=== PATIENT | male | born 1965 | race Caucasian/White ===

== ENCOUNTER 2017-12-05 14:13 | Emergency (ER) | END 2017-12-05 18:49 | disposition home or self-care (01) ==

== ENCOUNTER 2017-12-06 17:31 | Inpatient (IN) | END 2017-12-08 23:20 | DRG 65 ==

== ENCOUNTER 2017-12-08 23:50 | Inpatient (IN) | END 2017-12-22 15:00 | disposition home health service (06) | DRG 57 ==

== ENCOUNTER 2018-01-07 10:56 | Emergency (ER) | END 2018-01-07 14:58 | disposition home or self-care (01) ==

== ENCOUNTER 2019-01-12 16:51 | Inpatient (IN) | payer OTHER ==
[~2019-01-12] VITALS: Ht 167.6 cm; Wt 81.5 kg
[~2019-01-12 16:51] MED LIST: ALPR0.5T PO; ASPI-903 PO; ATOR20TA38 PO; EPIN0.3P4 INJ; FAMO20TA18 PO; LEVE-5 PO; PRED20TA PO
--- NOTE | 2019-01-12 17:01 | ERD ---
ER Documentation Chief Complaint Chief Complaint Left-sided numbness HPI The patient is a 53-year-old male, presenting to the ER because of left-sided numbness that began about 2-hour prior to arrival, 3 PM. He denies fever, chills, syncope, near syncope, dysarthria, dysphonia, weakness, neck pain, chest pain, dyspnea, abdominal pain, vomiting. He had a stroke about a year ago with left hemiplegia Medical history: CVA with left hemiplegia, hypertension, anxiety, epilepsy, dyslipidemia Past surgical history: None ROS All systems reviewed and are negative except as per history of present illness. Medications Home Meds Reported Medications Metoprolol Succinate* (Toprol XL*) 25 Mg Tab.sr.24h, 25 MG PO DAILY, #30 TAB 01/12/19 Loratadine* (Loratadine*) 10 Mg Tablet, 10 MG PO DAILY, #30 TAB 01/12/19 Omeprazole* (Omeprazole*) 20 Mg Capsule.dr, 20 MG PO DAILY, #30 CAP 01/12/19 Gabapentin* (Gabapentin*) 100 Mg Capsule, 100 MG PO BID, #90 CAP 01/12/19 Atorvastatin Calcium* (Atorvastatin Calcium*) 20 Mg Tablet, 20 MG PO QHS, #30 TAB 01/12/19 Aspirin (Low Dose Aspirin) 81 Mg Tablet.dr, 81 MG PO DAILY, #30 TAB 01/12/19 Discontinued Reported Medications Atorvastatin Calcium* (Atorvastatin Calcium*) 20 Mg Tablet, 20 MG PO QHS, #30 TAB 01/07/18 Aspirin* (Aspirin* Chew) 81 Mg Tab.chew, 81 MG PO DAILY, TAB.CHEW 01/07/18 Famotidine* (Famotidine*) 20 Mg Tablet, 20 MG PO DAILY, #30 TAB 01/07/18 Discontinued Scripts Alprazolam* (Xanax*) 0.5 Mg Tab, 0.5 MG PO Q8H PRN for ANXIETY, #14 TAB Prov:JAMI HOOVER. DO 01/07/18 Epinephrine (Epipen 2-Rishabh) 0.3 Mg/0.3 Ml Pen.injctr, 1 EA INJ ONCE PRN for ALLERGIC REACTION, #1 EA Prov:LISSA HOOVERSTCASES A. DO 01/07/18 Prednisone* (Prednisone*) 20 Mg Tab, 60 MG PO DAILY for 5 Days, TAB Prov:LEKKOS,APOSTOLOS A. DO 01/07/18 Levetiracetam* (Keppra*) 500 Mg Tablet, 500 MG PO BID, #60 TAB Prov:TRISTIN HOOVERS Vincent. DO 01/07/18 Allergies Allergies: Coded Allergies: Penicillins (Verified Allergy, Unknown, RASH, 01/12/19) PMhx/Soc History of Surgery: No Anesthesia Reaction: No Hx Neurological Disorder: Yes (CVA) Hx Respiratory Disorders: No Hx Cardiac Disorders: No Hx Psychiatric Problems: No Hx Miscellaneous Medical Probl: No Hx Alcohol Use: No Hx Substance Use: No Hx Tobacco Use: No Physical Exam Vitals Vital Signs Date Temp Pulse Resp B/P (MAP) Pulse Ox O2 O2 Flow FiO2 Time Delivery Rate 01/12/19 98.7 77 18 111/78 97 Room Air 23:32 (89) 01/12/19 65 18 120/88 99 Room Air 22:20 (99) 01/12/19 65 18 129/89 100 Room Air 21:00 (102) 01/12/19 74 18 118/80 98 Room Air 19:49 (93) 01/12/19 78 18 130/79 98 Room Air 18:38 (96) 01/12/19 98.2 114 19 170/99 97 16:59 (122) Physical Exam Const: No acute distress. Head: Atraumatic. Eyes: Normal Conjunctiva. ENT: Normal External Ears, Nose and Mouth. Neck: Full range of motion. No meningismus. Resp: Clear to auscultation bilaterally. Cardio: Regular rate and rhythm. Abd: Soft, non distended, normal bowel sounds, non tender. Skin: No petechiae or rashes. Back: No midline or flank tenderness. Ext: No cyanosis, or edema. Neur: Awake and alert. Left upper and left lower extremity 3+ Psych: Normal Mood and Affect. Result Diagram: 01/12/19 1721 01/12/19 1721 Results 24 hrs Laboratory Tests Test 01/12/19 17:21 White Blood Count 8.6 10^3/ul Red Blood Count 5.19 10^6/ul Hemoglobin 15.2 g/dl Hematocrit 45.7 % Mean Corpuscular Volume 88.1 fl Mean Corpuscular Hemoglobin 29.3 pg Mean Corpuscular Hemoglobin Concent 33.3 g/dl Red Cell Distribution Width 12.0 % Platelet Count 284 10^3/UL Mean Platelet Volume 8.9 fl Immature Granulocytes % 0.200 % Neutrophils % 45.1 % Lymphocytes % 40.9 % Monocytes % 7.1 % Eosinophils % 6.0 % Basophils % 0.7 % Nucleated Red Blood Cells % 0.0 /100WBC Immature Granulocytes # 0.020 10^3/ul Neutrophils # 3.9 10^3/ul Lymphocytes # 3.5 10^3/ul Monocytes # 0.6 10^3/ul Eosinophils # 0.5 10^3/ul Basophils # 0.1 10^3/ul Nucleated Red Blood Cells # 0.0 10^3/ul Prothrombin Time 12.9 Sec Prothrombin Time Ratio 1.0 INR International Normalized Ratio 0.96 Activated Partial Thromboplast Time 25.4 Sec Sodium Level 141 mmol/L Potassium Level 3.9 mmol/L Chloride Level 103 mmol/L Carbon Dioxide Level 25 mmol/L Anion Gap 13 Blood Urea Nitrogen 10 mg/dl Creatinine 1.00 mg/dl Est Glomerular Filtrat Rate mL/min > 60 mL/min Glucose Level 111 mg/dl Calcium Level 9.1 mg/dl Current Medications Medications Dose Sig/Mindi Start Time Status Last (Trade) Ordered Route PRN Stop Time Admin Dose Reason Admin Aspirin 325 mg ONCE ONCE 01/12/19 DC 01/12/19 (Aspirin) PO 19:30 19:41 01/12/19 19:31 Procedures/[place] [address] Radiology Main Line: [phone] DIAGNOSTIC IMAGING REPORT Patient: ANTONI AGUILAR : 1965 Age: 53 Sex: M MR #: [id number] DOS: 01/12/19 1705 Ordering MD: MASON AGOSTO MD Location: E/R Room/Bed: PROCEDURE: CT Brain without contrast. CLINICAL INDICATION: Headache. Left-sided numbness. TECHNIQUE: A CT of the brain was performed on a multidetector CT scanner utilizing axial imaging from the skull base through the vertex without IV contrast. Multiplanar reformatted images were made. Images were reviewed on a PACS workstation. The CTDIvol is 40 mGy and the DLP is 634 mGycm. DICOM images are available. One or more of the following dose reduction techniques were utilized: 1.) Automated exposure control 2.) Adjustment of the mA +/- kV according to patient's size 3.) Use of iterative reconstruction technique. COMPARISON: Head CT January 07, 2018. FINDINGS: There is no intracranial hemorrhage, mass effect, or midline shift. No extra- axial fluid collection is seen. There is mild to moderate diffuse cerebral volum e loss with sulcal and ventricular dilatation. Ventricles are of normal configuration. There are aging acute to subacute infarcts involving the right medial temporal lobe, the posterior limb of the right internal capsule and the right centrum [place] white matter right. Periventricular chronic white matter disease is again seen in both cerebral hemispheres. There is no associated mass effect. No intracranial hemorrhage is identified.. The visualized paranasal sinuses and osseous structures are grossly unremarkable. IMPRESSION: Aging acute to subacute non-hemorrhagic infarcts medial right temporal lobe, posterior limb right internal capsule and right centrum [place]. P eriventricular white matter disease both cerebral hemispheres compatible with chronic small vessel ischemia. No intracranial hemorrhage or mass. Underlying mild to moderate diffuse cerebral atrophy. .Shaheen Noonan MD, MD Date Time Electronically viewed and signed by .Shaheen Noonan MD, MD on 01/12/2019 17:25 .A/ CC: MASON AGOSTO MD [phone] Consultation: I discussed the patient with the stroke neurologist who did not recommend TPA MEDICAL MAKING DECISION: The patient is a 53-year-old male, presenting with acute versus subacute stroke. He was treated with aspirin 325 mg p.o. the differential diagnoses considered include but are not limited to The differential diagnoses considered include but are not limited to acute stroke, subacute stroke, subarachnoid hemorrhage, occult trauma, CVA, meningitis, encephalitis, hypertension, tension, migraine, cluster, narcotic withdrawal, cervical spine disease. Departure Diagnosis: Primary Impression: Left sided numbness Condition: Stable Comments I discussed the findings with the patient. I discussed the patient with Dr Orantes at 7:20p , who was made aware of the lab, the treatment, the patient conditio n. The patient is admitted to Tel Disclaimer: Inadvertent spelling and grammatical errors are likely due to EHR/dictation software use and do not reflect on the overall quality of patient care. Also, please note that the electronic time recorded on this note does not necessarily reflect the actual time of the patient encounter. MASON AGOSTO MD Jan 12, 2019 17:01
[2019-01-12] MEDS ORDERED: ASPI81TA52 PO (17:23)
[2019-01-12] MEDS ORDERED: GABA100C14 PO (17:24)
[2019-01-12] MEDS ORDERED: OMEP20CA16 PO (17:24)
[2019-01-12] MEDS ORDERED: ATOR20TA38 PO (17:24)
[2019-01-12] MEDS ORDERED: LORA10TA3 PO (17:25)
[2019-01-12] MEDS ORDERED: METO-335 PO (17:25)
--- NOTE | 2019-01-12 17:59 | STROKE ---
Date/Time of Note Date/Time of Note DATE: 01/12/19 TIME: 20:54 Patient Information General Arrival Date Age 53 Gender male Weight 77.27 kg Vital Signs Vital Signs Vital Signs Date Temp Pulse Resp B/P (MAP) Pulse Ox O2 O2 Flow FiO2 Time Delivery Rate 01/12/19 98.2 114 19 170/99 97 16:59 (122) Patient History Current Medications Allergies: Coded Allergies: Penicillins (Verified Allergy, Unknown, RASH, 01/12/19) NIH Stroke Scale NIH Stroke Scale Date/Time Recorded DATE: 01/12/19 TIME: 20:54 Submitted By Agustin العراقي t-PA Imaging Review Date/Time Imaging Reviewed DATE: 01/12/19 TIME: 20:54 t-PA Administration Weight 77.27 kg Recommedation submitted by Agustin العراقي Recommendations Recommendation i discussed the case over the phone with dr. chun as the on-call ischemic stroke and residual left hemiparesis presenting to the emergency room with his only new symptom being left sided numbness. i did not interview or exam of the patient at the time of service. the entirety of the history and physical were taken from the emergency room doctor. the patient complained of only new numbness and no new weakness. his noncontrast head ct shows multiple small vessel ischemic strokes of different ages in the right hemisphere, including the temporal lobe. the patient's symptoms started at 3;00 pm and i was called around 5;00 pm. the patient was clearly within the iv tpa treatment window, but i explained that the new deficit is not one that would warrant exposure to iv tpa. additionally, given that the ct is showing subacute infarction, i wonder about the true time of onset. the patient should be admitted for stroke workup beginning with an mri to see if there is any acute infarction.Because the patient has presumed TIA with resolved symptoms and ABCD2 > 3, or the patient has persisting symptoms and NIHSS < 4, I have recommended DAPT per the results of the POINT trial. Administer Plavix 600 mg PO now and 75 mg PO daily starting tomorrow for 90 days. Administer aspirin 325 mg PO now, 162 mg PO daily for 5 days starting tomorrow, and then 81 mg PO daily indefinitely. BP < 200/110. Consultation with local inpatient neurologist. MRI Brain wo. CTA head and neck. TTE. Telemetry. Consider LINQ. PT/OT/SLT. Bedside swallow. Stroke Education. Smoking cessation counseling, if a smoker. Recommendations were discussed with ED . AGUSTIN العراقي MD Jan 12, 2019 17:59
[2019-01-12] MEDS ORDERED: ASPIRIN 325 MG TAB PO ONE (19:30)
[2019-01-13] VITALS (11 sets, daily range): BP systolic 111–129; BP diastolic 63–78; PULSE 58–88; RESP 16–20; Ht 167.6 cm; Wt 81.5 kg
[2019-01-13] MEDS ORDERED: CLOPIDOGREL 75 MG TAB PO ONE (01:00)
--- NOTE | 2019-01-13 08:06 | HP ---
Date/Time of Note Date/Time of Note DATE: 01/13/19 TIME: 08:02 Assessment/Plan VTE Prophylaxis Pharmacological prophylaxis: NA/contraindicated Pharm contraindication: other Lines/Catheters IV Catheter Type (from Nrs): Peripheral IV Assessment/Plan Hospital Course 53 years old male with history of CVA in 2018 residual left-sided weakness more pronounced in upper extremity, reported history of seizure not on antiepileptics who presented with acute onset left lower extremity numbness & stiffness which happened yesterday 3 PM. He was seen in the emergency room at 5 PM by tele stroke neurologist. He was not deemed a candidate of TPA. CT of the head without contrast was done which showed Aging acute to subacute non-hemorrhagic infarcts medial right temporal lobe, posterior limb right internal capsule and right centrum [place]. 2D echo with agitated saline was done which was unremarkable Plan Admit to telemetry observation Carotid ultrasound -MRI of the brain without contrast Follow-up with neurology recommendations Continue Keppra, patient was told by primary care not to take it continue aspirin, Plavix, statin PT OT Prophylaxis: SCDs Problems: (1) Left sided numbness Status: Acute (2) Intravenous tissue plasminogen activator (tPA) not indicated (3) History of seizure (4) History of CVA with residual deficit Result Diagram: 01/12/19 1721 01/12/19 1721 Results 24hrs Laboratory Tests Test 01/12/19 17:21 01/13/19 06:13 White Blood Count 8.6 # Red Blood Count 5.19 Hemoglobin 15.2 Hematocrit 45.7 Mean Corpuscular Volume 88.1 Mean Corpuscular Hemoglobin 29.3 Mean Corpuscular Hemoglobin Concent 33.3 Red Cell Distribution Width 12.0 Platelet Count 284 # Mean Platelet Volume 8.9 Immature Granulocytes % 0.200 Neutrophils % 45.1 Lymphocytes % 40.9 Monocytes % 7.1 Eosinophils % 6.0 Basophils % 0.7 Nucleated Red Blood Cells % 0.0 Immature Granulocytes # 0.020 Neutrophils # 3.9 Lymphocytes # 3.5 H Monocytes # 0.6 Eosinophils # 0.5 Basophils # 0.1 Nucleated Red Blood Cells # 0.0 Prothrombin Time 12.9 Prothrombin Time Ratio 1.0 INR International Normalized Ratio 0.96 Activated Partial Thromboplast Time 25.4 Sodium Level 141 Potassium Level 3.9 Chloride Level 103 Carbon Dioxide Level 25 Anion Gap 13 Blood Urea Nitrogen 10 Creatinine 1.00 Est Glomerular Filtrat Rate mL/min > 60 Glucose Level 111 Calcium Level 9.1 Triglycerides Level 146 Cholesterol Level 130 LDL Cholesterol, Calculated 74 HDL Cholesterol 27 L Cholesterol/HDL Ratio 4.8 HPI/ROS Admit Date/Time Admit Date/Time Jan 12, 2019 at 19:22 Hx of Present Illness 53 years old male with history of CVA in 2018 residual left-sided weakness more pronounced in upper extremity, reported history of seizure not on antiepileptics who presented with acute onset left lower extremity numbness in his stiffness yesterday 3 PM. He was seen in the emergency room at 5 PM by telemetry stroke neurologist. He was not deemed a candidate of TPA. CT of the head without contrast was done which showed Aging acute to subacute non-hemorrhagic infarcts medial right temporal lobe, posterior limb right internal capsule and right centrum [place]. Patient denies any new left upper or lower extremity weakness. He denies change in vision, problems with balance, seizure activity, fever, chills, chest pain, shortness of breath, palpitation, change in urination or bowel habits. PMH/Family/Social Past Medical History Medications Current Medications Ondansetron HCl (Zofran Inj) 4 mg Q4 PRN IV VOMITTING; Start 01/13/19 at 01:30 Atorvastatin Calcium (Lipitor) 20 mg QHS PO ; Start 01/13/19 at 21:00 Gabapentin (Neurontin) 100 mg BID PO ; Start 01/13/19 at 09:00 Loratadine (Claritin) 10 mg DAILY PO ; Start 01/13/19 at 09:00 Metoprolol Succinate (Toprol Xl) 25 mg DAILY PO ; Start 01/13/19 at 09:00 Aspirin (Halfprin) 162 mg DAILY PO ; Start 01/13/19 at 09:00; Status UNV Clopidogrel Bisulfate (plaVIX) 75 mg DAILY PO ; Start 01/13/19 at 09:00; Status UNV Coded Allergies: Penicillins (Verified Allergy, Unknown, RASH, 01/12/19) Past Surgical History Past Surgical Hx: no surgical history Family History Significant Family History: hypertension Social History Smoking Status: Never smoker Exam/Review of Systems Vital Signs Vitals Vital Signs Date Temp Pulse Resp B/P (MAP) Pulse Ox O2 O2 Flow FiO2 Time Delivery Rate 01/13/19 98.0 77 16 118/75 98 Room Air 07:20 (89) Exam Exam Gen.: In no acute distress, pleasant and cooperative Eyes: Anicteric, conjunctiva normal, PERRLA, EOM intact HEENT: Normocephalic, atraumatic, hearing grossly intact, oral mucosa moist, Neck: Supple, no masses, trachea midline Cardiovascular: Regular rate and rhythm, no peripheral edema, no murmurs, no gallops, no rubs Respiratory: Clear to auscultation bilaterally, no use of accessory muscles of respiration, no wheezes, expiration not prolonged Extremities: No cyanosis, no edema, no calf tenderness, pulses bilaterally palpable, extremities warm and perfused Abdomen: Soft, not distended, nontender, bowel sounds present, no guarding, no rebound Neurological: Alert and oriented x3, speech normal, residual left side facial symmetry noted, residual left upper extremity weakness noted, residual left side dysmetria noted. : No Mabry catheter Dermatologic no rash, no ulcers Heme: No acute bleeding, no ecchymosis or petechia AMBERLY STOVALL MD Jan 13, 2019 08:06
[2019-01-13] MEDS: GABAPENTIN 100 MG CAP PO SCH ×2 (08:14→20:24)
[2019-01-13] MEDS: CLOPIDOGREL 75 MG TAB PO SCH (08:15)
[2019-01-13] MEDS: METOPROLOL (XL) 25 MG TAB PO SCH (08:16)
[2019-01-13] MEDS: LORATADINE 10 MG TAB PO SCH (08:17)
[2019-01-13] MEDS: ASPIRIN (EC) 81 MG TAB PO SCH (08:17)
[2019-01-13] MEDS ORDERED: ASPIRIN (EC) 81 MG TAB PO SCH (09:00)
--- NOTE | 2019-01-13 10:59 | CONSI ---
Assessment/Plan Assessment/Plan Assessment/Plan (Recall) 53 M c/ reported Hx of prior stroke c/b epilepsy...who presents for evaluation of transient worsening left sided weakness w/ numbness...for which neurology is consulted. The clinical picture is most ominously concerning for recurrent stroke.. Recrudescence is additionally considered -- a Dx of exclusion. Head CT suggests evolving acute-subacute infarctions... LDL 74; A1C 6.0, BP OK P: MRI brain for further characterization OK to continue asa/lipitor daily for secondary stroke prevention, pending the above Add UDS, UA PT/OT/ST as necessary Resume Keppra for seizure ppx (patient self-d/c'd despite recurrent focal motor seizures...) Other management per primary Will follow clinically Consultation Date/Type/Reason Admit Date/Time Jan 12, 2019 at 19:22 Type of Consult Neurology Reason for Consultation transient L arm and leg numbness Requesting Provider: PENELOPE LAZARO MD Date/Time of Note DATE: 01/13/19 TIME: 10:53 Hx of Present Illness The patient is a 53-year-old male, presenting to the ER because of left-sided numbness that began about 2-hour prior to arrival, 3 PM. Lasted ~ 30 minutes. He denies fever, chills, syncope, near syncope, dysarthria, dysphonia, weakness, neck pain, chest pain, dyspnea, abdominal pain, vomiting. He had a stroke about a year ago with left hemiplegia Medical history: CVA with left hemiplegia, hypertension, anxiety, epilepsy, dyslipidemia Past surgical history: None 12 PT ROS ow neg Objective Exam Vitals Vital Signs Date Temp Pulse Resp B/P (MAP) Pulse Ox O2 O2 Flow FiO2 Time Delivery Rate 01/13/19 85 08:01 01/13/19 98.0 16 118/75 98 Room Air 07:20 (89) Exam PE: Gen Appearance: No Apparent Distress HEENT: Normocephalic Cardiovascular: Regular rate Lungs: Clear bilaterally Abdomen: Soft Extremities: Dry NE: The patient was alert and oriented. Language was normal. Fund of knowledge was normal. Pupils were equal and reactive to light. There was no afferent pupillary defect. Visual li were normal. Funduscopic examination was limited. Extra-ocular movements were full. Ptosis was absent. There was no nystagmus. Facial sensation was normal. Face was symmetric with normal strength. Hearing was intact. Palate movements were normal. Neck strength was normal. There was normal tongue bulk and speed of movement. Tone was increased on the left. Muscle bulk was normal. I did not see fa sciculations. Arms and leg were mildly weak on the left (arm > leg) Vibration sensation was normal. Temperature and pinprick sensation was normal. Rapid alternating movements were normal. There was no dysmetria. There was no intention tremor. Gait was deferred due to bedrest. Arm and leg reflexes were brisk on the left.. Lopez's sign was absent. Plantar responses were flexor. Results Result Diagram: 01/12/19 1721 01/12/19 1721 Results 24hrs Laboratory Tests Test 01/12/19 17:21 01/13/19 06:13 White Blood Count 8.6 # Red Blood Count 5.19 Hemoglobin 15.2 Hematocrit 45.7 Mean Corpuscular Volume 88.1 Mean Corpuscular Hemoglobin 29.3 Mean Corpuscular Hemoglobin Concent 33.3 Red Cell Distribution Width 12.0 Platelet Count 284 # Mean Platelet Volume 8.9 Immature Granulocytes % 0.200 Neutrophils % 45.1 Lymphocytes % 40.9 Monocytes % 7.1 Eosinophils % 6.0 Basophils % 0.7 Nucleated Red Blood Cells % 0.0 Immature Granulocytes # 0.020 Neutrophils # 3.9 Lymphocytes # 3.5 H Monocytes # 0.6 Eosinophils # 0.5 Basophils # 0.1 Nucleated Red Blood Cells # 0.0 Prothrombin Time 12.9 Prothrombin Time Ratio 1.0 INR International Normalized Ratio 0.96 Activated Partial Thromboplast Time 25.4 Sodium Level 141 Potassium Level 3.9 Chloride Level 103 Carbon Dioxide Level 25 Anion Gap 13 Blood Urea Nitrogen 10 Creatinine 1.00 Est Glomerular Filtrat Rate mL/min > 60 Glucose Level 111 Calcium Level 9.1 Hemoglobin A1c 6.0 H Triglycerides Level 146 Cholesterol Level 130 LDL Cholesterol, Calculated 74 HDL Cholesterol 27 L Cholesterol/HDL Ratio 4.8 Vitamin B12 Level > 1000 H Thyroid Stimulating Hormone (TSH) 1.510 Past Medical History reviewed Home Meds Reported Medications Metoprolol Succinate* (Toprol XL*) 25 Mg Tab.sr.24h, 25 MG PO DAILY, #30 TAB 01/12/19 Loratadine* (Loratadine*) 10 Mg Tablet, 10 MG PO DAILY, #30 TAB 01/12/19 Omeprazole* (Omeprazole*) 20 Mg Capsule.dr, 20 MG PO DAILY, #30 CAP 01/12/19 Gabapentin* (Gabapentin*) 100 Mg Capsule, 100 MG PO BID, #90 CAP 01/12/19 Atorvastatin Calcium* (Atorvastatin Calcium*) 20 Mg Tablet, 20 MG PO QHS, #30 TAB 01/12/19 Aspirin (Low Dose Aspirin) 81 Mg Tablet.dr, 81 MG PO DAILY, #30 TAB 01/12/19 Discontinued Reported Medications Atorvastatin Calcium* (Atorvastatin Calcium*) 20 Mg Tablet, 20 MG PO QHS, #30 TAB 01/07/18 Aspirin* (Aspirin* Chew) 81 Mg Tab.chew, 81 MG PO DAILY, TAB.CHEW 01/07/18 Famotidine* (Famotidine*) 20 Mg Tablet, 20 MG PO DAILY, #30 TAB 01/07/18 Discontinued Scripts Alprazolam* (Xanax*) 0.5 Mg Tab, 0.5 MG PO Q8H PRN for ANXIETY, #14 TAB Prov:JAMI HOOVER DO 01/07/18 Epinephrine (Epipen 2-Rishabh) 0.3 Mg/0.3 Ml Pen.injctr, 1 EA INJ ONCE PRN for ALLERGIC REACTION, #1 EA Prov:JAMI HOOVER DO 01/07/18 Prednisone* (Prednisone*) 20 Mg Tab, 60 MG PO DAILY for 5 Days, TAB Prov:JAMI HOOVER DO 01/07/18 Levetiracetam* (Keppra*) 500 Mg Tablet, 500 MG PO BID, #60 TAB Prov:JAMI HOOVER DO 01/07/18 Medications Current Medications Ondansetron HCl (Zofran Inj) 4 mg Q4 PRN IV VOMITTING; Start 01/13/19 at 01:30 Gabapentin (Neurontin) 100 mg BID PO Last administered on 01/13/19at 08:14; Admin Dose 100 MG; Start 01/13/19 at 09:00 Loratadine (Claritin) 10 mg DAILY PO Last administered on 01/13/19at 08:17; Admin Dose 10 MG; Start 01/13/19 at 09:00 Metoprolol Succinate (Toprol Xl) 25 mg DAILY PO Last administered on 01/13/19at 08:16; Admin Dose 25 MG; Start 01/13/19 at 09:00 Aspirin (Halfprin) 162 mg DAILY PO Last administered on 01/13/19at 08:17; Admin Dose 162 MG; Start 01/13/19 at 09:00 Clopidogrel Bisulfate (plaVIX) 75 mg DAILY PO Last administered on 01/13/19at 08:15; Admin Dose 75 MG; Start 01/13/19 at 09:00 Atorvastatin Calcium (Lipitor) 80 mg QHS PO ; Start 01/13/19 at 21:00 Allergies: Coded Allergies: Penicillins (Verified Allergy, Unknown, RASH, 01/12/19) Past Surgical History Past Surgical Hx: no surgical history Social History Smoking Status: Never smoker NUZHAT SMITH Jan 13, 2019 10:59
[2019-01-13] MEDS: LEVETIRACETAM 500 MG TAB PO SCH ×3 (12:13→20:29)
--- NOTE | 2019-01-13 14:30 | RADRPT ---
Echocardiogram Report Patient Name: ANTONI AGUILARPatient ID: [id number] : 1965 (53y 4m)Study Date: 01/13/2019 9:19:06 AM Gender: Lacession #: [id number] Tech: RahulMarj Quiroz [facility] Location: 521 Ref.Physician: AMBERLY STOVALL Height(Cm): BSA: Weight(Kg): Quality: AdequateOrder Physician: AMBERLY STOVALL Account #: Procedures: Echocardiographic Report: Transthoracic echocardiogram with complete 2D, M-Mode, and doppler examination. Indications: Cerebrovascular Accident. Measurements: 2D/M Mode Doppler Measurement Value Normal Range Measurement Value Normal Range LVIDd 2D 3.9 [ 4.2 - 5.8 ] cm AV Peak Shahid 1.1 [ 100.0 - 170.0 ] cm/sec LVIDs 2D 2.2 [ 2.5 - 4.0 ] cm AV Peak PG 5.0 [ 2.0 - 9.0 ] mmHg LVPWd 2D 1.0 [ 0.6 - 1.0 ] cm LVOT Peak Shahid 1.3 [ 70.0 - 110.0 ] cm/sec IVSd 2D 0.8 [ 0.6 - 1.0 ] cm LVOT Peak PG 6.0 [ 2.0 - 6.0 ] mmHg IVS/LVPW 2D 0.9 ratio MV E Peak Shahid 0.6 [ 60.0 - 130.0 ] cm/sec AoR Diam 2D 2.7 [ 2.6 - 3.4 ] cm MV A Peak Shahid 0.7 [ 100.0 - 120.0 ] cm/sec LA/Ao 2D 1 ratio MV E/A 0.8 [ 0.8 - 1.5 ] ratio LA Dimen 2D 2.7 [ 3.0 - 4.0 ] cm MV Decel Time 169 [ 104 - 258 ] msec Lat E` Shahid 0.1 [ 10.0 - 15.0 ] cm/sec MV E/A 0.8 [ 0.8 - 1.5 ] ratio Findings: Left Ventricle: Normal left ventricular systolic function. Normal left ventricular cavity size. Normal left ventricular wall thickness. Ejection fraction is visually estimated at 65 %. Tissue Doppler/Mitral Doppler indices are consistent with impaired relaxation (Stage I diastolic dysfunction). Right Ventricle: Normal right ventricular size. Normal right ventricular systolic function. Left Atrium: The left atrium is normal in size. Right Atrium: The right atrium is normal in size. Atrial Septum: Bubble study was performed with and with out valsalva indicating no evidence of intra atrial shunt. Mitral Valve: Normal appearance and function of the mitral valve with trace physiologic regurgitation. Aortic Valve: Normal appearance of the aortic valve. No significant aortic stenosis or insufficiency. Tricuspid Valve: Normal appearance of the tricuspid valve. Unable to obtain RVSP due to minimal presence of tricuspid regurgitation. Pulmonic Valve: Pulmonic valve not well visualized. Pericardium: Normal pericardium with no significant pericardial effusion. Aorta: Normal aortic root. IVC: Normal size and normal respiratory collapse consistent with normal right atrial pressure. Conclusions: Normal left ventricular systolic function. Normal left ventricular cavity size. Normal left ventricular wall thickness. Ejection fraction is visually estimated at 65 %. Tissue Doppler/Mitral Doppler indices are consistent with impaired relaxation (Stage I diastolic dysfunction). Normal right ventricular size. Normal right ventricular systolic function. The left atrium is normal in size. The right atrium is normal in size. No significant valvular stenosis or regurgitation seen. Normal pericardium with no significant pericardial effusion. Bubble study was performed with and with out valsalva indicating no evidence of intra atrial shunt. Electronically Signed By: Michael Frazier 2019-01-13 14:30:25 PDT
[2019-01-13] MEDS: ONDANSETRON 4 MG INJ IV PRN ×2 (16:14→20:50)
[2019-01-13] MEDS ORDERED: SOD CHLORIDE 0.9% 100 ML ONE (20:09)
[2019-01-13] MEDS ORDERED: IOHEXOL 100 ML ONE (20:09)
[2019-01-13] MEDS ORDERED: ATORVASTATIN 80 MG TAB PO SCH (21:00)
[2019-01-13] MEDS ORDERED: ATORVASTATIN 20 MG TAB PO SCH (21:00)
[2019-01-14] VITALS (9 sets, daily range): BP systolic 103–114; BP diastolic 60–76; PULSE 58–79; RESP 18–20
[2019-01-14] MEDS ORDERED: ACETAMINOPHEN 325 MG TAB PO PRN
[2019-01-14] MEDS: LEVETIRACETAM 500 MG TAB PO SCH (08:39)
[2019-01-14] MEDS: LORATADINE 10 MG TAB PO SCH (08:40)
[2019-01-14] MEDS: GABAPENTIN 100 MG CAP PO SCH (08:40)
[2019-01-14] MEDS: CLOPIDOGREL 75 MG TAB PO SCH (08:40)
[2019-01-14] MEDS: METOPROLOL (XL) 25 MG TAB PO SCH (08:41)
[2019-01-14] MEDS: ASPIRIN (EC) 81 MG TAB PO SCH (10:18)
[2019-01-14] MEDS ORDERED: LEVE-5 PO (10:23)
[2019-01-14] MEDS ORDERED: CLOP75TA28 PO (10:23)
--- NOTE | 2019-01-14 10:28 | PDOCDIS ---
Discharge Instructions CONDITION [id number] Patient Condition: [id number] Fair - Please take Plavix in addition to Aspirin ( blood thinners). Standard precautions to prevent fall. Contact your doctors in case of bleeding . Resume taking Keppra for seizure disorder There was stenosis of an artery noted on CT angiogram of the head and you will need referral to see neurointerventional radiology. HOME CARE INSTRUCTIONS: [id number] Diet Instructions: [id number] Low Fat /Cholesterol ACTIVITY: [id number] Activity Restrictions: [id number] No Restrictions Slowly Increase Activity Do not Drive Do not operate Power Tool FOLLOW UP/APPOINTMENTS Follow-up Plan PCP in 7 days Interventional neurology in 2 weeks AMBERLY STOVALL MD Jan 14, 2019 10:28
--- NOTE | 2019-01-14 10:28 | DS ---
Date/Time of Note Date/Time of Note DATE: 01/14/19 TIME: 10:28 Discharge Summary Admission/Discharge Info Admit Date/Time Jan 12, 2019 at 19:22 Discharge Date/Time Hx of Present Illness 53 years old male with history of CVA in 2018 residual left-sided weakness more pronounced in upper extremity, reported history of seizure not on antiepileptics who presented with acute onset left lower extremity numbness in his stiffness yesterday 3 PM. He was seen in the emergency room at 5 PM by telemetry stroke neurologist. He was not deemed a candidate of TPA. CT of the head without contrast was done which showed Aging acute to subacute non-hemorrhagic infarcts medial right temporal lobe, posterior limb right internal capsule and right centrum [place]. Patient denies any new left upper or lower extremity weakness. He denies change in vision, problems with balance, seizure activity, fever, chills, chest pain, shortness of breath, palpitation, change in urination or bowel habits. Hospital Course 53 years old male with history of CVA in 2018 residual left-sided weakness more pronounced in upper extremity, reported history of seizure not on antiepileptics who presented with acute onset left lower extremity numbness & stiffness which happened yesterday 3 PM. He was seen in the emergency room at 5 PM by tele stroke neurologist. He was not deemed a candidate of TPA. CT of the head without contrast was done which showed Aging acute to subacute non-hemorrhagic infarcts medial right temporal lobe, posterior limb right internal capsule and right centrum [place]. 2D echo with agitated saline was done which was unremarkable Plan Admit to telemetry observation Carotid ultrasound -MRI of the brain without contrast Follow-up with neurology recommendations Continue Keppra, patient was told by primary care not to take it continue aspirin, Plavix, statin PT OT Prophylaxis: SCDs Home Meds Active Scripts Levetiracetam* (Keppra*) 500 Mg Tablet, 500 MG PO BID for 30 Days, #30 TAB Prov:AMBERLY STOVALL MD 01/14/19 Clopidogrel Bisulfate (Clopidogrel) 75 Mg Tablet, 75 MG PO DAILY for 30 Days, #30 TAB Prov:AMBERLY STOVALL MD 01/14/19 Reported Medications Metoprolol Succinate* (Toprol XL*) 25 Mg Tab.sr.24h, 25 MG PO DAILY, #30 TAB 01/12/19 Loratadine* (Loratadine*) 10 Mg Tablet, 10 MG PO DAILY, #30 TAB 01/12/19 Omeprazole* (Omeprazole*) 20 Mg Capsule.dr, 20 MG PO DAILY, #30 CAP 01/12/19 Gabapentin* (Gabapentin*) 100 Mg Capsule, 100 MG PO BID, #90 CAP 01/12/19 Atorvastatin Calcium* (Atorvastatin Calcium*) 20 Mg Tablet, 20 MG PO QHS, #30 TAB 01/12/19 Aspirin (Low Dose Aspirin) 81 Mg Tablet.dr, 81 MG PO DAILY, #30 TAB 01/12/19 Discontinued Reported Medications Atorvastatin Calcium* (Atorvastatin Calcium*) 20 Mg Tablet, 20 MG PO QHS, #30 TAB 01/07/18 Aspirin* (Aspirin* Chew) 81 Mg Tab.chew, 81 MG PO DAILY, TAB.CHEW 01/07/18 Famotidine* (Famotidine*) 20 Mg Tablet, 20 MG PO DAILY, #30 TAB 01/07/18 Discontinued Scripts Alprazolam* (Xanax*) 0.5 Mg Tab, 0.5 MG PO Q8H PRN for ANXIETY, #14 TAB Prov:LEKKOS,APOSTOLOS A. DO 01/07/18 Epinephrine (Epipen 2-Rishabh) 0.3 Mg/0.3 Ml Pen.injctr, 1 EA INJ ONCE PRN for ALLERGIC REACTION, #1 EA Prov:LEKKOS,APOSTOLOS A. DO 01/07/18 Prednisone* (Prednisone*) 20 Mg Tab, 60 MG PO DAILY for 5 Days, TAB Prov:LEKKOS,APOSTOLOS A. DO 01/07/18 Levetiracetam* (Keppra*) 500 Mg Tablet, 500 MG PO BID, #60 TAB Prov:LEKKOS,APOSTOLOS A. DO 01/07/18 Follow-up Plan PCP in 7 days Interventional neurology in 2 weeks Primary Care Provider Julian Hummel Pending Labs Laboratory Tests Test 01/13/19 12:25 01/14/19 07:08 Urine Color STRAW (YELLOW) Urine Clarity CLEAR (CLEAR) Urine pH 8.0 (5.0-9.0) Urine Specific [place] 1.008 (1.003-1.030) Urine Ketones NEGATIVE mg/dL (NEGATIVE) Urine Nitrite NEGATIVE mg/dL (NEGATIVE) Urine Bilirubin NEGATIVE mg/dL (NEGATIVE) Urine Urobilinogen NEGATIVE mg/dL (NEGATIVE) Urine Leukocyte Esterase NEGATIVE Patt/ul Urine Hemoglobin NEGATIVE mg/dL (NEGATIVE) Urine Glucose NEGATIVE mg/dL (NEGATIVE) Urine Total Protein NEGATIVE mg/dl (NEGATIVE) Urine Opiates Screen Negative (NEGATIVE) Urine Barbiturates Negative (NEGATIVE) Urine Amphetamines Screen Negative (NEGATIVE) Urine Benzodiazepines Negative (NEGATIVE) Screen Urine Cocaine Screen Negative (NEGATIVE) Urine Cannabinoids Negative (NEGATIVE) White Blood Count 7.8 10^3/ul (4.8-10.8) Red Blood Count 5.26 10^6/ul (4.70-6.10) Hemoglobin 15.5 g/dl (14.0-18.0) Hematocrit 46.8 % (42.0-52.0) Mean Corpuscular Volume 89.0 fl (82.0-101.0) Mean Corpuscular 29.5 pg (29.0-33.0) Hemoglobin Mean Corpuscular 33.1 g/dl (32.0-37.0) Hemoglobin Concent Red Cell Distribution 12.3 % (11.5-14.5) Width Platelet Count 289 10^3/UL (140-415) Mean Platelet Volume 9.1 fl (7.4-10.4) Immature Granulocytes % 0.300 % (0.001-0.429) Neutrophils % 55.0 % (39.0-77.0) Lymphocytes % 28.5 % (15.0-51.0) Monocytes % 9.4 % (0.0-11.0) Eosinophils % 6.2 % (0.0-7.0) Basophils % 0.6 % (0.0-2.0) Nucleated Red Blood Cells 0.0 /100WBC (0.0-0.0) % Immature Granulocytes # 0.020 10^3/ul (0.0-0.031) Neutrophils # 4.3 10^3/ul (1.6-7.5) Lymphocytes # 2.2 10^3/ul (0.8-2.9) Monocytes # 0.7 10^3/ul (0.3-0.9) Eosinophils # 0.5 10^3/ul (0.0-0.5) Basophils # 0.1 10^3/ul (0.0-0.1) Nucleated Red Blood Cells 0.0 10^3/ul (0.0-0.0) # Sodium Level 141 mmol/L (135-144) Potassium Level 4.6 mmol/L (3.5-5.1) Chloride Level 105 mmol/L (97-110) Carbon Dioxide Level 28 mmol/L (21-31) Anion Gap 8 (5-13) Blood Urea Nitrogen 15 mg/dl (7-20) Creatinine 1.21 mg/dl (0.61-1.24) Est Glomerular Filtrat > 60 mL/min (>60) Rate mL/min Glucose Level 93 mg/dl (70-220) Calcium Level 9.4 mg/dl (8.4-10.2) Phosphorus Level 4.1 mg/dl (2.5-4.9) Magnesium Level 2.5 mg/dl (1.7-2.5) Total Bilirubin 0.5 mg/dl (0.2-1.3) Direct Bilirubin 0.00 mg/dl (0.00-0.20) Indirect Bilirubin 0.5 mg/dl (0-1.1) Aspartate Amino 34 IU/L (15-46) Transf (AST/SGOT) Alanine 56 IU/L (13-69) Aminotransferase (ALT/SGPT ) Alkaline Phosphatase 54 IU/L (42-121) Total Protein 7.3 g/dl (6.1-8.1) Albumin 4.0 g/dl (3.3-4.9) Globulin 3.30 g/dl (1.3-3.2) Albumin/Globulin Ratio 1.21 AMBERLY STOVALL MD Jan 14, 2019 10:28
--- NOTE | 2019-01-14 15:46 | CONS ---
Assessment/Plan Assessment/Plan Assessment/Plan (Recall) 53 M c/ reported Hx of prior stroke c/b epilepsy...who presents for evaluation of transient worsening left sided weakness w/ numbness...for which neurology is consulted. The clinical picture is most clinically consistent w/ recrudescence. MRI brain is reassuringly negative for acute intracranial pathology. LDL 74; A1C 6.0, BP OK UA/UDS neg P: OK to continue asa/lipitor daily for secondary stroke prevention PT/OT/ST as necessary Continue Keppra for seizure ppx (patient self-d/c'd despite recurrent focal motor seizures...) Other management per primary Consultation Date/Type/Reason Admit Date/Time Jan 12, 2019 at 19:22 Type of Consult Neurology Reason for Consultation transient L arm and leg numbness Requesting Provider: PENELOPE LAZARO MD Date/Time of Note DATE: 01/14/19 TIME: 15:45 24 HR Interval Summary Free Text/Dictation Continues acute care Exam/Review of Systems Exam Vitals Vital Signs Date Temp Pulse Resp B/P (MAP) Pulse Ox O2 O2 Flow FiO2 Time Delivery Rate 01/14/19 98.0 70 19 113/76 98 Room Air 14:56 (88) Intake and Output 01/13/19 01/13/19 01/14/19 1515:00 23:00 07:00 IntakeIntake Total 100 ml 1600 ml BalanceBalance 100 ml 1600 ml Results Result Diagram: 01/14/19 0708 01/14/19 0708 Results 24hrs Laboratory Tests Test 01/14/19 07:08 White Blood Count 7.8 Red Blood Count 5.26 Hemoglobin 15.5 Hematocrit 46.8 Mean Corpuscular Volume 89.0 Mean Corpuscular Hemoglobin 29.5 Mean Corpuscular Hemoglobin Concent 33.1 Red Cell Distribution Width 12.3 Platelet Count 289 Mean Platelet Volume 9.1 Immature Granulocytes % 0.300 Neutrophils % 55.0 Lymphocytes % 28.5 Monocytes % 9.4 Eosinophils % 6.2 Basophils % 0.6 Nucleated Red Blood Cells % 0.0 Immature Granulocytes # 0.020 Neutrophils # 4.3 Lymphocytes # 2.2 Monocytes # 0.7 Eosinophils # 0.5 Basophils # 0.1 Nucleated Red Blood Cells # 0.0 Sodium Level 141 Potassium Level 4.6 Chloride Level 105 Carbon Dioxide Level 28 Anion Gap 8 Blood Urea Nitrogen 15 Creatinine 1.21 Est Glomerular Filtrat Rate mL/min > 60 Glucose Level 93 Calcium Level 9.4 Phosphorus Level 4.1 Magnesium Level 2.5 Total Bilirubin 0.5 Direct Bilirubin 0.00 Indirect Bilirubin 0.5 Aspartate Amino Transf (AST/SGOT) 34 Alanine Aminotransferase (ALT/SGPT) 56 Alkaline Phosphatase 54 Total Protein 7.3 Albumin 4.0 Globulin 3.30 H Albumin/Globulin Ratio 1.21 Medications Medication Current Medications Ondansetron HCl (Zofran Inj) 4 mg Q4 PRN IV VOMITTING Last administered on 01/13/19 20:50; Admin Dose 4 MG; Start 01/13/19 at 01:30 Gabapentin (Neurontin) 100 mg BID PO Last administered on 01/14/19 08:40; Admin Dose 100 MG; Start 01/13/19 at 09:00 Loratadine (Claritin) 10 mg DAILY PO Last administered on 01/14/19 08:40; Admin Dose 10 MG; Start 01/13/19 at 09:00 Metoprolol Succinate (Toprol Xl) 25 mg DAILY PO Last administered on 01/14/19 08:41; Admin Dose 25 MG; Start 01/13/19 at 09:00 Aspirin (Halfprin) 162 mg DAILY PO Last administered on 01/14/19 10:18; Admin Dose 162 MG; Start 01/13/19 at 09:00 Clopidogrel Bisulfate (plaVIX) 75 mg DAILY PO Last administered on 01/14/19 08:40; Admin Dose 75 MG; Start 01/13/19 at 09:00 Atorvastatin Calcium (Lipitor) 80 mg QHS PO Last administered on 01/13/19 20:24; Admin Dose 80 MG; Start 01/13/19 at 21:00 Levetiracetam (Keppra) 500 mg BID PO Last administered on 01/14/19 08:39; Admin Dose 500 MG; Start 01/13/19 at 11:02 Acetaminophen (Tylenol Tab) 650 mg Q6H PRN PO MILD PAIN(1-3)OR ELEVATED TEMP; Start 01/14/19 at 00:00 NUZHAT SMITH Jan 14, 2019 15:45
== END 2019-01-14 16:59 | disposition home or self-care (01) | DRG 65 ==
LOC: E/R 16:51 → TEL 19:22
PROVIDERS: ADMIT Internal Medicine; ATTEND Internal Medicine
DX: I63.9 Cerebral infarction, unspecified (principal); I69.354 Hemiplegia and hemiparesis following cerebral infarction affecting left non-dominant side; R20.0 Anesthesia of skin; I10 Essential (primary) hypertension; G40.909 Epilepsy, unspecified, not intractable, without status epilepticus; E78.5 Hyperlipidemia, unspecified; Z79.82 Long term (current) use of aspirin; Z88.0 Allergy status to penicillin
CPT/HCPCS: 36415; 70450; 70496; 70498; 70551; 80048; 80053; 80061; 80307; 81003; 82607; 83036; 83735; 84100; 84443; 85025; 85610; 85730; 92610; 93306; 97162; J2405; Q9967